=== PATIENT | male | born 1995 | race Caucasian/White ===

== ENCOUNTER → 2016-09-16 | Emergency (ER) | payer SELFPAY ==
[~2016-09-16] VITALS: Ht 195.6 cm; Wt 120.5 kg
[2016-09-16 08:12] VITALS: BP 148/82; PULSE 77; TEMP 98.1
== END ==
LOC: COL.ER 08:02
DX: T23.231A Burn of second degree of multiple right fingers (nail), not including thumb, initial encounter (principal); T23.131A Burn of first degree of multiple right fingers (nail), not including thumb, initial encounter; X08.8XXA Exposure to other specified smoke, fire and flames, initial encounter; Y92.828 Other wilderness area as the place of occurrence of the external cause